=== PATIENT | female | born 1935 ===

== ENCOUNTER → 2023-04-26 10:00 | Outpatient (REF) | payer OTHER, SELFPAY ==
[2023-04-26 11:35] LABS: Blood Urea Nitrogen 24 mg/dl (7-17); Calcium 10.2 mg/dl (8.4-10.2); Carbon Dioxide 30 mmol/L (22-30); Chloride 95 mmol/L (98-107); Glucose 87 mg/dl (70-99); Potassium 4.2 mmol/L (3.5-5.1); Sodium 133 mmol/L (135-145); eGFR > 60.00
== END ==
LOC: OLABSOL 10:00
PROVIDERS: ATTENDING PHYSICIAN Hospitalist
DX: R94.4 Abnormal results of kidney function studies (principal)
CPT/HCPCS: 36415; 80048

== ENCOUNTER → 2023-05-24 12:51 | Outpatient (REF) | payer OTHER, SELFPAY ==
[2023-05-24 14:15] LABS: Blood Urea Nitrogen 22 mg/dl (7-17); Calcium 9.5 mg/dl (8.4-10.2); Carbon Dioxide 28 mmol/L (22-30); Chloride 99 mmol/L (98-107); Glucose 87 mg/dl (70-99); Potassium 4.2 mmol/L (3.5-5.1); Sodium 131 mmol/L (135-145); eGFR > 60.00
[2023-05-24 14:23] LABS: NT-proBNP 281 pg/ml
== END ==
LOC: OLABSOL 12:51
PROVIDERS: ATTENDING PHYSICIAN Hospitalist
DX: R94.4 Abnormal results of kidney function studies (principal)
CPT/HCPCS: 36415; 80048; 83880

== ENCOUNTER → 2023-05-29 12:35 | Outpatient (REF) | payer OTHER, SELFPAY ==
[2023-05-29 14:02] LABS: Sodium 131 mmol/L (135-145)
== END ==
LOC: OLABSOL 12:35
PROVIDERS: ATTENDING PHYSICIAN Nurse Practitioner Gerontology
DX: E87.1 Hypo-osmolality and hyponatremia (principal)
CPT/HCPCS: 36415; 84295